=== PATIENT | male | born 1995 | race Caucasian/White ===

== ENCOUNTER 2017-01-24 13:40 | Emergency (ER) | payer BC | END 2017-01-24 14:55 | disposition home or self-care (01) | LOC: ER1 13:40 | DX: S60.221A Contusion of right hand, initial encounter (principal); F17.210 Nicotine dependence, cigarettes, uncomplicated; W22.01XA Walked into wall, initial encounter | CPT/HCPCS: 29130; 73110; 73130; 99283 ==